=== PATIENT | female | born 1975 | race Caucasian/White ===

== ENCOUNTER 2023-08-15 08:00 | Outpatient (RCR) | payer MEDICAID ==
[~2023-08-15 08:00] MED LIST: ABILIFY5 MG PO; ALBUTEROL2.5 MG/3 M IH; ALTOPREV20 M1 PO; AMOXICILLIN 50500 MG PO; ARIPIPRAZOLE10 M1 PO; ARIPIPRAZOLE15 MG PO; AUGMENTIN 875-1 EAC1 PO; BIOTIN2500 MCG PO; BREO ELLIPTA 21 EACH IH; CELEXA20 M1 PO; CEPHALEXIN250 MG PO; CEPHALEXIN500 M1 PO; CITALOPRAM40 MG PO; CLARITIN10 M1 PO; CLEOCIN HCL300 MG PO; CLINDAMYCIN 300MG PO; COMBIVENT RESPI1 SPR IH; CYCLOBENZAPRINE10 M1 PO; DESENEX2% TP; DESYREL 100MG100 MG PO; DICLOFENAC POT.50 MG PO; DIFLUCAN150 M1 PO; DOXYCYCLINE HYC50 M1 PO; ESCITALOPRAM20 MG PO; FLOVENT HFA10.6 GM IH; GEMTESA75 MG PO; HCTZ 25MG25 MG PO; HYDROXYZINE HCL25 M1 PO; HYDROXYZINE HYD50 M1 PO; HYDROXYZINE PAM25 M1 PO; IPRATROPIUM BROM3 M1 IH; ISIBLOOM 28 DA1 EACH PO; LAMICTAL (BLUE)25 MG PO; LAMICTAL200 M1 PO; LAMOTRIGINE200 MG PO; LEVOTHYROXIN0.025 MG PO; LEVOTHYROXINE0.05 MG PO; LEVOTHYROXINE300 MCG PO; LOVASTATIN20 M1 PO; MACROBID 100 M100 MG PO; MELOXICAM15 MG PO; MICROGESTIN 1/21 TAB PO; MORGIDOX 1X100100 MG PO; MUCUS RELIEF400 M1 PO; MUPIROCIN2% TP; NABUMETONE PO; NAPROSYN500 M1 PO; NEURONTIN800 M1 PO; NIZORAL CREAM15 GM TP; NORCO 325 MG-51 TAB PO; NYSTATIN UD5 ML/CUP PO; NYSTATIN15 G1 TP; OMEPRAZOLE D/R20 MG PO; ONDANSETRON HYDR4 M1 PO; ONDANSETRON ODT8 MG PO; OXYBUTYNIN CHLO10 MG PO; PANTOPRAZOLE SO40 MG PO; PEPCID 20MG TAB20 MG PO; PERCOCET 325 MG1 TA2 PO; PREDNISONE10 MG PO; PREDNISONE20 M1 PO; PREDNISONE20 MG PO; PREMARIN0.625 MG; PREMARIN0.625 MG PO; PROAIR HFA0.09 MG/AC IH; PROGESTERONE100 M1; PYRIDIUM200 M2 PO; RECLIPSEN 0.151 TAB PO; ROBITUSSIN AC PO; RT ADVAIR HFA 2312 G IH; SAXENDA3 MG/0.5 M SQ; SENEXON8.6 MG PO; SEROQUEL 2525 MG/TAB PO; SINGULAIR 110 MG/TAB PO; SINGULAIR4 MG PO; SOLIFENACIN SUC10 MG PO; SPIRIVA RESPIMAT4 GM IH; TESSALON PERLE100 M1 PO; TOPAMAX 100MG100 M1 PO; TOPAMAX100 MG PO; TREXIMET 500 MG1 TAB PO; TREXIMET PO; VESICARE10 MG PO; VIBRAMYCIN HYC100 MG PO; VIBRAMYCIN100 MG PO; VITAMIN B122500 MC1 PO; VITAMIN D21250 MCG PO; VITAMIN D3125 MCG PO; VITAMIN D50000 UNIT PO; WELLBUTRIN XL150 M2 PO; WELLBUTRIN XL300 M1 PO; WOMEN'S DAILY F1 TAB PO; ZITHROMAX 250M250 MG PO; ZOFRAN ODT4 MG PO; ZOFRAN ODT8 M1 PO
== END 2023-09-12 | disposition home or self-care (01) ==
LOC: PT
DX: R29.6 Repeated falls (principal)

== ENCOUNTER → 2023-10-04 | Outpatient (CLI) | payer MEDICAID | LOC: RAD 13:49 | DX: M47.26 Other spondylosis with radiculopathy, lumbar region (principal) ==

== ENCOUNTER 2024-04-18 12:23 | Emergency (ER) | payer MEDICAID ==
[~2024-04-18] VITALS: Ht 165.1 cm; Wt 125.3 kg
[2024-04-18] MEDS ORDERED: [UNRECOGNIZED DRUG - OTHER] PO (12:38)
[2024-04-18] MEDS ORDERED: ZYRTEC10 M3 PO (12:39)
[2024-04-18] MEDS ORDERED: WEGOVY0.25 MG/0. IM (12:42)
[2024-04-18 12:54] LABS: BASO # 0.01 K/mm3 (0.02-0.10); EOS # 1.12 K/mm3 (0.04-0.40); EOS % 11.2 % (1.0-5.0); HEMATOCRIT 42.9 % (37.0-47.0); LYMPH# 1.23 K/mm3 (1.50-4.00); MEAN CELL VOLUME 95 fl (78-100); MEAN CORPUSCULAR HEMOGLOBIN 31 pg (27-31); MEAN CORPUSCULAR HGB CONC 33 g/dL (33-37); MEAN PLATELET VOLUME 9.4 fl (7.4-10.4); MONO # 0.83 K/mm3 (0.20-0.80); NEU # 6.79 K/mm3 (1.40-6.50); PLATELET COUNT 310 K/mm3 (130-400); RED BLOOD COUNT 4.53 M/mm3 (4.10-5.30); RED CELL DISTRIBUTION WIDTH 13.3 % (11.5-14.5)
[2024-04-18 13:06] LABS: ALBUMIN 4.1 g/dL (3.5-5.0); SODIUM 142 mmol/L (136-145)
[2024-04-18 13:08] LABS: CALCIUM 9.6 mg/dL (8.3-10.5)
[2024-04-18 13:09] LABS: GLUCOSE 83 mg/dL (65-105); TOTAL PROTEIN 6.7 g/dL (6.4-8.3)
[2024-04-18 13:10] LABS: CARBON DIOXIDE 25 mmol/L (22-29)
[2024-04-18 13:11] LABS: TOTAL BILIRUBIN 0.5 mg/dL (0.2-1.2)
[2024-04-18 13:14] LABS: AST-SGOT 16 U/L (5-34)
[2024-04-18 13:15] LABS: ALT/SGPT 9 U/L (0-55)
[2024-04-18 13:16] LABS: LIPASE 36 U/L (8-78)
[2024-04-18 13:23] LABS: TROPONIN-I < 0.030 ng/mL (0.00-0.033)
[2024-04-18] MEDS ORDERED: Azithromycin 250 MG TAB PO ONE (13:30)
[2024-04-18] MEDS ORDERED: Cefdinir 300 MG CAP PO ONE (13:30)
[2024-04-18] MEDS ORDERED: ZITHROMAX 250M250 MG PO (13:31)
[2024-04-18] MEDS ORDERED: CEFDINIR300 MG PO (13:31)
[2024-04-18] MEDS ORDERED: FLUCONAZOLE150 MG PO (13:37)
[2024-04-18 15:00] VITALS: BP 135/82
== END 2024-04-18 14:39 | disposition home or self-care (01) ==
LOC: ED 12:23
PROVIDERS: Family Medicine
DX: J18.9 Pneumonia, unspecified organism (principal); Z99.81 Dependence on supplemental oxygen
CPT/HCPCS: J7120

== ENCOUNTER → 2024-06-12 | Outpatient (REF) | payer MEDICAID ==
[~2024-06-12] MED LIST changes: +CEFDINIR300 MG PO; +FLUCONAZOLE150 MG PO; +WEGOVY0.25 MG/0. IM; +ZYRTEC10 M3 PO; +[UNRECOGNIZED DRUG - OTHER] PO
== END ==
LOC: LAB 10:53
DX: R05.9 Cough, unspecified (principal)

== ENCOUNTER → 2024-06-16 | Outpatient (CLI) | payer MEDICAID ==
[2024-06-16 15:40] LABS: BASO # 0.01 K/mm3 (0.02-0.10); EOS # 0.66 K/mm3 (0.04-0.40); EOS % 8.6 % (1.0-5.0); HEMATOCRIT 45.3 % (37.0-47.0); HEMOGLOBIN 14.5 g/dL (12.5-16.0); LYMPH# 1.41 K/mm3 (1.50-4.00); MEAN CELL VOLUME 96 fl (78-100); MEAN CORPUSCULAR HEMOGLOBIN 31 pg (27-31); MEAN CORPUSCULAR HGB CONC 32 g/dL (33-37); MEAN PLATELET VOLUME 9.2 fl (7.4-10.4); MONO # 0.55 K/mm3 (0.20-0.80); PLATELET COUNT 279 K/mm3 (130-400); RED BLOOD COUNT 4.73 M/mm3 (4.10-5.30); RED CELL DISTRIBUTION WIDTH 12.1 % (11.5-14.5); WHITE BLOOD COUNT 7.6 K/mm3 (4.8-10.8)
== END ==
LOC: LAB 15:24
PROVIDERS: Student in an Organized Health Care Education/Training Program
DX: N39.3 Stress incontinence (female) (male) (principal)

== ENCOUNTER 2024-08-02 22:59 | Emergency (ER) | payer MEDICAID ==
[~2024-08-02] VITALS: Ht 165.1 cm; Wt 121.8 kg
[2024-08-02 23:41] LABS: RED BLOOD COUNT 4.68 M/mm3 (4.10-5.30); WHITE BLOOD COUNT 10.4 K/mm3 (4.8-10.8)
[2024-08-02 23:42] LABS: BASO # 0.02 K/mm3 (0.02-0.10); EOS # 0.83 K/mm3 (0.04-0.40); HEMATOCRIT 44.2 % (37.0-47.0); HEMOGLOBIN 14.7 g/dL (12.5-16.0); LYMPH# 1.49 K/mm3 (1.50-4.00); MEAN CELL VOLUME 94 fl (78-100); MEAN CORPUSCULAR HEMOGLOBIN 31 pg (27-31); MEAN CORPUSCULAR HGB CONC 33 g/dL (33-37); MEAN PLATELET VOLUME 8.8 fl (7.4-10.4); MONO # 1.05 K/mm3 (0.20-0.80); NEU # 6.91 K/mm3 (1.40-6.50); PLATELET COUNT 297 K/mm3 (130-400); RED CELL DISTRIBUTION WIDTH 13.1 % (11.5-14.5)
[2024-08-02 23:50] LABS: ALBUMIN 4.1 g/dL (3.5-5.0)
[2024-08-02 23:51] LABS: CALCIUM 9.5 mg/dL (8.3-10.5)
[2024-08-02 23:52] LABS: TOTAL PROTEIN 6.9 g/dL (6.4-8.3)
[2024-08-02 23:54] LABS: TOTAL BILIRUBIN 0.6 mg/dL (0.2-1.2)
[2024-08-03] LABS: URINE APPEARANCE CLOUDY (CLEAR); URINE COLOR YELLOW (YELLOW)
[2024-08-03 00:01] LABS: URINE BILIRUBIN NEGATIVE (NEGATIVE); URINE BLOOD NEGATIVE (NEGATIVE); URINE GLUCOSE NEGATIVE (NEGATIVE); URINE KETONE NEGATIVE (NEGATIVE); URINE LEUKOCYTE ESTERASE TRACE (NEGATIVE); URINE MUCUS PRESENT (NOT PRESENT); URINE NITRATE NEGATIVE (NEGATIVE); URINE PROTEIN(semi-quant) 1+ (NEGATIVE)
[2024-08-03] MEDS ORDERED: Home Ondansetron ODT 4 MG #2 ODT/PACK PO ONE (01:30)
[2024-08-03 07:01] VITALS: BP 118/63
== END 2024-08-03 07:02 | disposition home or self-care (01) ==
LOC: ED 22:59
PROVIDERS: Family Medicine
DX: K52.9 Noninfective gastroenteritis and colitis, unspecified (principal); Z87.891 Personal history of nicotine dependence

== ENCOUNTER 2024-09-27 12:37 | Observation (INO) | payer MEDICAID ==
[~2024-09-27] VITALS: Ht 165.1 cm; Wt 121.2 kg
[2024-09-27] MEDS ORDERED: PREDNISONE20 M1 PO (12:54)
[2024-09-27] MEDS ORDERED: ACETAMINOPHEN-H1 TA2 PO (12:54)
[2024-09-27] MEDS ORDERED: DOXYCYCLINE HYC50 M1 PO (12:54)
[2024-09-27] MEDS ORDERED: BUDESONIDE1 MG/2 ML IH (12:55)
[2024-09-27] MEDS ORDERED: ALBUTEROL2.5 MG/3 M IH (12:55)
[2024-09-27] MEDS ORDERED: Albuterol/Ipratropium 3 MG-0.5 MG/3 ML Neb Soln IH ONE (13:30)
[2024-09-27 13:38] LABS: HEMATOCRIT 45.1 % (37.0-47.0); HEMOGLOBIN 15.1 g/dL (12.5-16.0); MEAN CELL VOLUME 93 fl (78-100); MEAN CORPUSCULAR HEMOGLOBIN 31 pg (27-31); MEAN CORPUSCULAR HGB CONC 34 g/dL (33-37); MEAN PLATELET VOLUME 9.4 fl (7.4-10.4); PLATELET COUNT 246 K/mm3 (130-400); RED BLOOD COUNT 4.85 M/mm3 (4.10-5.30); RED CELL DISTRIBUTION WIDTH 13.5 % (11.5-14.5); WHITE BLOOD COUNT 5.8 K/mm3 (4.8-10.8)
[2024-09-27 13:41] LABS: ALBUMIN 4.2 g/dL (3.5-5.0)
[2024-09-27 13:42] LABS: CALCIUM 9.1 mg/dL (8.3-10.5)
[2024-09-27 13:44] LABS: TOTAL PROTEIN 7.6 g/dL (6.4-8.3)
[2024-09-27 13:46] LABS: TOTAL BILIRUBIN 0.7 mg/dL (0.2-1.2)
[2024-09-27 14:07] LABS: LYMPHOCYTE 4 % (20-51); MONOCYTE 2 % (3-10); NEUTROPHILS 94 % (42-75)
[2024-09-27] MEDS ORDERED: methylPREDNISolone Sod Succ 40 MG/ML VIAL IV SCH (15:45)
[2024-09-27] MEDS ORDERED: hydrOXYzine HCl 25 MG TAB PO PRN (15:45)
[2024-09-27] MEDS ORDERED: Acetaminophen 325 MG TAB PO PRN ×2 (15:45→21:00)
[2024-09-27 16:30] VITALS: BP 137/95
[2024-09-27] MEDS ORDERED: Albuterol/Ipratropium 3 MG-0.5 MG/3 ML Neb Soln IH SCH (18:00)
--- NOTE | 2024-09-27 18:47 | NUR ---
PT. ADMITTED OBS TO ROOM 201 FROM ED THIS AFTERNOON. REMAINS ON O2 AT 4L PER NC. SATS 93-94% DENIES ANY NEEDS OR CONCERNS.
[2024-09-27 19:00] VITALS: BP 124/88
--- NOTE | 2024-09-27 20:25 | NUR ---
HS medications taken without difficulty. PRN Tylenol provided. Await order for hydrocodone.
[2024-09-27] MEDS ORDERED: Budesonide Neb Soln 0.5 MG/2 ML AMP IH SCH (21:00)
[2024-09-27] MEDS ORDERED: GABAPENTIN PO SCH (21:00)
[2024-09-27] MEDS ORDERED: lamoTRIgine 100 MG TABLET PO SCH (21:00)
[2024-09-27] MEDS ORDERED: ARIPiprazole 5 MG TAB PO SCH (21:00)
[2024-09-27] MEDS ORDERED: Escitalopram 10 MG TAB PO SCH (21:00)
[2024-09-27] MEDS ORDERED: buPROPion XL (24-HR ER) 150 MG TAB PO SCH (21:00)
[2024-09-27] MEDS ORDERED: Montelukast 10 MG TAB PO SCH (21:00)
--- NOTE | 2024-09-27 21:15 | NUR ---
GRAIN MIXER assisted with shower and hair wash. Needed encouragement to wash privates, groin and airpits throughly. Noted to have a strong foul body odor. No skin breakdown noted, Has scattered scratches on legs, states she has a cat at home. Hair matted after shower, is very thick and hard to comb. States will have daughter bring in a brush tomorrow.
--- NOTE | 2024-09-27 22:00 | NUR ---
I.S. provided per order and instructed on use.
[2024-09-27 23:02] VITALS: BP 131/81
--- NOTE | 2024-09-28 01:18 | NUR ---
Resting quietly. SAO2 currently 92% on 4L/NC. Calls for assist to BR PRN.
[2024-09-28 02:23] VITALS: BP 126/80
--- NOTE | 2024-09-28 02:27 | NUR ---
Calls and request pain pill for back pain 03/22. Hydrocodone 5/325 MG taken at this time. VS obtained. Denies further wants or needs.
[2024-09-28 07:00] VITALS: BP 122/79
--- NOTE | 2024-09-28 07:02 | NUR ---
Report to Nancy SOUZA
--- NOTE | 2024-09-28 07:14 | NUR ---
report recieved from Sue BUENROSTRO
[2024-09-28] MEDS ORDERED: Influenza Virus Vaccine, Trivalent '24-25 0.5 ML SYRINGE IM SCH (09:00)
[2024-09-28] MEDS ORDERED: Tiotropium 2.5 MCG Respimat MDI IH SCH (09:00)
[2024-09-28] MEDS ORDERED: buPROPion XL (24-HR ER) 150 MG TAB PO SCH (09:00)
--- NOTE | 2024-09-28 11:30 | NUR ---
Pt resting in chair at this time. This nurse has weaned her down on Oxygen down to 3L via NC. oxygen sat was 93% at 0930. 1030 this nurse moved patient oxygen level to 2L as O2 was 92% 1130- pt O2 sat was 88-89%, this nurse increased O2 to 3L via NC.
[2024-09-28 11:36] VITALS: BP 123/77
--- NOTE | 2024-09-28 12:53 | NUR ---
turned patient oxygen down to 1.5L
[2024-09-28 15:00] VITALS: BP 149/96
[2024-09-28] MEDS ORDERED: FERROUS SULFAT325 M4 PO (16:16)
[2024-09-28] MEDS ORDERED: STIMULANT LAXA1 EACH PO (16:17)
[2024-09-28] MEDS ORDERED: FERROUS SULFATE65 MG PO (16:29)
--- NOTE | 2024-09-28 17:03 | NUR ---
pt ambulated the hallways with no difficulty. pt was short of breathe after ambulating. pt is on 3L O2 at this time with O2 saturations at 90%.
--- NOTE | 2024-09-28 18:45 | NUR ---
REPORT GIVEN TO BRUCE BUENROSTRO
[2024-09-28 19:00] VITALS: BP 122/77
--- NOTE | 2024-09-28 20:00 | NUR ---
Report received from Nancy SOUZA. Patient sitting up in recliner playing on phone. A/O x4. Oxygen in place at 3.5L/NC. Requests analgesic for back pain 03/22. Also requesting food due to her potato being "burnt". Accu-check done at this time. 123 MG/DL. Ham sandwich provided per request. HS medications taken and hydrocodone taken at this time. Assessment completed. Lungs CTA with no wheezing noted at this time. Reports still having NPC, unable to expel any sputum. Reports no BM today but had one yesterday. Colace and iron added to her MAR per day nurse. Up to SBA no device. Denies further wants or needs at this time. Calls for assist to BR PRN. Reports drinking water well "I'm on my fourth cup"
--- NOTE | 2024-09-28 21:36 | NUR ---
Up to BR with SBA SAO2 decreased to 87-88% while in BR on 3.5 L. Increased back to 91-92% when back sitting in recliner. Currently 93% sitting in recliner. Reports pain level currently 5/10 after taking Ambler.
[2024-09-28 23:04] VITALS: BP 122/79
--- NOTE | 2024-09-28 23:08 | NUR ---
SAO2 showing desaturations intermittently. Finger probe loose and sweaty. New probe applied. SAO2 94% on 3.5 L. Sitting up in recliner.
--- NOTE | 2024-09-29 00:02 | NUR ---
HS medications given. IV patent to RAC. Assisted to bed, SBA. Oxygen level 94% on 3.5 L/NC. Bed alarm on. Call light in reach.
--- NOTE | 2024-09-29 01:53 | NUR ---
SAO2 95% on 3.5L/NC. Rests quietly in bed.
[2024-09-29 04:09] VITALS: BP 111/72
--- NOTE | 2024-09-29 07:18 | NUR ---
Report to Elise SOUZA.
[2024-09-29 07:20] VITALS: BP 125/78
[2024-09-29 07:34] LABS: EOS # 0.01 K/mm3 (0.04-0.40); EOS % 0.1 % (1.0-5.0); HEMATOCRIT 43.7 % (37.0-47.0); HEMOGLOBIN 13.9 g/dL (12.5-16.0); LYMPH# 0.67 K/mm3 (1.50-4.00); MEAN CELL VOLUME 96 fl (78-100); MEAN CORPUSCULAR HEMOGLOBIN 31 pg (27-31); MEAN CORPUSCULAR HGB CONC 32 g/dL (33-37); MEAN PLATELET VOLUME 9.5 fl (7.4-10.4); NEU # 10.12 K/mm3 (1.40-6.50); PLATELET COUNT 256 K/mm3 (130-400); RED BLOOD COUNT 4.54 M/mm3 (4.10-5.30); RED CELL DISTRIBUTION WIDTH 13.7 % (11.5-14.5); WHITE BLOOD COUNT 11.7 K/mm3 (4.8-10.8)
[2024-09-29 07:39] LABS: ALBUMIN 3.8 g/dL (3.5-5.0)
[2024-09-29 07:40] LABS: CALCIUM 9.1 mg/dL (8.3-10.5)
[2024-09-29 07:41] LABS: TOTAL PROTEIN 6.9 g/dL (6.4-8.3)
[2024-09-29 07:43] LABS: TOTAL BILIRUBIN 0.3 mg/dL (0.2-1.2)
[2024-09-29] MEDS ORDERED: Ferrous Sulfate 325 MG TAB PO SCH (08:00)
[2024-09-29] MEDS ORDERED: Docusate Sodium 100 MG CAP PO SCH (09:00)
[2024-09-29] MEDS ORDERED: buPROPion 75 MG TAB PO ONE (09:45)
[2024-09-29 11:57] VITALS: BP 117/78
--- NOTE | 2024-09-29 13:23 | NUR ---
PATIENT'S O2 WAS 93% @3.5LPM VIA NASAL CANNULA. OXYGEN HAS BEEN TITRATED DOWN 0.5 EVERY 30MIN TO HOUR. SHE IS CURRENTLY AT 2LPM AND O2 IS 93-94%. SHE IS PLEASENT AND HAS BEEN COOPERATIVE WITH [facility]. SHE IS HOPING TO GO HOME, BUT UNDERSTANDS IF SHE NEEDS TO STAY.
[2024-09-29 15:30] VITALS: BP 114/77
--- NOTE | 2024-09-29 16:52 | NUR ---
PATIENT WAS SLOWLY TITRATED DOWN TO ROOM AIR AND O2 STAYED 92-93%. NURSE HAD PATIENT AMBULATE 100FT ON ROOM AIR AND O2 HELD AT 92-93%. IT DID DROP TO 91% FOR A SHORT TIME AND THEN BACK TO 93%. PATIENT SAT BACK DOWN IN CHAIR AND O2 HELD AT 93%. PATIENT STATES THAT AT HER REGULAR DR'S APPT PRIOR TO BECOMING ILL, HER BASELINE WAS 93%. SHE DENIES SHORTNESS OF BREATH, PAIN WHILE BREATHING, DIFFICULTY BREATHING, OR DIZZINESS WHEN ASKED.
[2024-09-29] MEDS ORDERED: PREDNISONE20 M1 PO (17:09)
--- NOTE | 2024-09-29 18:34 | NUR ---
PATIENT GATHERED BELONGINGS FROM ROOM. SHE WAS GIVEN HER SPIRIVA. PATIENT'S MOTHER PICKED UP PATIENT. DISCHARGE INSTRUCTIONS REVIEWED WITH PATIENT. SHE DENIED HAVING ANY QUESTIONS AND VOICED UNDERSTANDING OF HER INSTRUCTIONS. PATIENT WAS ASSISTED OUT VIA WHEELCHAIR.
--- NOTE | 2024-09-30 14:13 | NUR ---
Spoke with Dr. Constantino office. They report they cannot get patient in any sooner than November appt. Recommended to f/u with PCP for any new concerns or to explore other avenues.
== END 2024-09-29 18:30 | disposition home or self-care (01) ==
LOC: ED 12:37 → MED/SURG 15:32
PROVIDERS: Family Medicine; ADMIT Family Medicine
DX: J96.01 Acute respiratory failure with hypoxia (principal); J10.1 Influenza due to other identified influenza virus with other respiratory manifestations; J45.909 Unspecified asthma, uncomplicated; G47.30 Sleep apnea, unspecified; F31.9 Bipolar disorder, unspecified; Z87.891 Personal history of nicotine dependence; Z91.199 Patient's noncompliance with other medical treatment and regimen due to unspecified reason
CPT/HCPCS: A9270; G0378; J2919